=== PATIENT | male | born 1990 | race Caucasian/White ===

== ENCOUNTER 2020-07-23 13:50 | Emergency (ER) | payer SELFPAY ==
[~2020-07-23] VITALS: Ht 177.8 cm; Wt 77.1 kg
[2020-07-23 13:54] VITALS: BP 116/73
--- NOTE | 2020-07-23 14:18 | NUR ---
Dr Nunez at bedside examining pt
--- NOTE | 2020-07-23 14:22 | NUR ---
29 y/o male from home c/o bilateral testicle swelling s/p run 2 hrs prior to arrival. Pt states he was wearing tight compression shorts during run and when he removed them he noticed the swelling. Denies pain at this time. Pt states redness to scrotum, no pruritis. Denies penile pain/drainage. VSS
--- NOTE | 2020-07-23 14:31 | NUR ---
Ultrasound at bedside
--- NOTE | 2020-07-23 15:37 | NUR ---
Pt resting in bed on cellphone awake and alert. VSS, will continue to monitor
[2020-07-23 15:45] VITALS: BP 116/73
--- NOTE | 2020-07-23 15:45 | NUR ---
Patient discharged with v/s stable. Written and verbal after care instructions given and explained. Patient alert, oriented and verbalized understanding of instructions. Ambulatory with steady gait. All questions addressed prior to discharge. ID band removed. Patient advised to follow up with PMD. Rx of NAPROSYN 500MG given. Patient educated on indication of medication including possible reaction and side effects. Opportunity to ask questions provided and answered.
[2020-07-26 06:08] LABS: CHLAMYDIA TRACHOMATIS AMP DNA Negative (Negative)
== END 2020-07-23 15:45 | disposition home or self-care (01) ==
LOC: MED 13:50
DX: N50.812 Left testicular pain (principal); N50.811 Right testicular pain
CPT/HCPCS: 36415; 76870; 81002; 87491; 99284; Q0092